=== PATIENT | male | born 1950 | race Caucasian/White ===

== ENCOUNTER 2021-08-30 08:56 | Day surgery (SDC) | payer OTHER ==
[~2021-08-30 08:56] MED LIST: Midazolam 1 MG/ML 2 ML SDV ONE; Propofol 200 MG/20 ML SDV ONE; fentaNYL 100 MCG/2 ML SDV ONE
[2021-08-30] MEDS ORDERED: Sodium Chloride 0.9% 1,000 ML IV SCH (09:30)
--- NOTE | 2021-08-30 12:20 | OR ---
DATE OF PROCEDURE: 08/30/2021 SURGEON: Nilton Collins MD PROCEDURE: Colonoscopy. FINDINGS: 1. Sigmoid colon polyp, approximately 8 mm, completely removed using hot snare wire device. 2. Sigmoid colon polyp #2, approximately 5 mm, completely removed using cold biopsy forceps. 3. Diverticulosis, moderate, mostly concentrated in the sigmoid colon. COMPLICATIONS: None. [employer]: None. ANESTHESIA: MAC. PREOPERATIVE DIAGNOSIS: Screening colonoscopy. POSTOPERATIVE DIAGNOSIS: Screening colonoscopy. RISKS: Risks, benefits, alternatives, and limitations including, but not limited to, infection, bleeding, perforation, false positives, and false negatives were explained to the patient and they wished to proceed. PROCEDURE IN DETAIL: The patient was placed in left lateral decubitus position. Digital rectal exam was performed without abnormality. Scope was introduced and advanced atraumatically to the ileocecal valve. A photo was taken. The scope was brought back to the ascending, transverse, descending colon, and retroflexed. The aforementioned polyps were all identified and completely removed as described above. Diverticulosis described as moderate, limited to sigmoid colon, without evidence of diverticulitis or bleeding. No abnormalities on retroflexion. Greater than 8 minutes was spent removing the scope. The prep was acceptable, approximately 90% of the luminal surface could be seen. The patient tolerated the procedure well. Nilton Collins MD /[id number]
== END 2021-08-30 11:50 | disposition home or self-care (01) ==
LOC: JP.SDS 08:56
PROVIDERS: ATTEND Surgery
DX: Z12.11 Encounter for screening for malignant neoplasm of colon (principal); K63.5 Polyp of colon; K57.30 Diverticulosis of large intestine without perforation or abscess without bleeding; I10 Essential (primary) hypertension; E03.9 Hypothyroidism, unspecified
CPT/HCPCS: 45380; 45385; 88305; J2250; J2704; J3010; J7030

== ENCOUNTER 2022-12-02 06:25 | Day surgery (SDC) | payer MEDICARE, OTHER ==
[2022-12-02] MEDS ORDERED: Sodium Chloride 0.9% 1,000 ML IV SCH ×2 (07:12→08:30)
[2022-12-02] MEDS ORDERED: Propofol 200 MG/20 ML SDV ONE ×2 (07:12→08:03)
[2022-12-02] MEDS ORDERED: fentaNYL 50 MCG/ML SDV ONE (07:12)
== END 2022-12-02 09:28 | disposition home or self-care (01) ==
LOC: JP.SDS 06:25
PROVIDERS: ATTEND Surgery
DX: D12.5 Benign neoplasm of sigmoid colon (principal); K57.30 Diverticulosis of large intestine without perforation or abscess without bleeding; I10 Essential (primary) hypertension; E78.00 Pure hypercholesterolemia, unspecified; Z79.899 Other long term (current) drug therapy
CPT/HCPCS: 45381; 45385; 88305; J2704; J3010; J7030